=== PATIENT | female | born 1995 | race Caucasian/White ===

== ENCOUNTER 2021-10-09 13:00 | Outpatient (CLI) | payer OTHER, SELFPAY ==
[2021-10-09] VITALS (17 sets, daily range): BP systolic 101–113; BP diastolic 57–72; PULSE 79–110; RESP 16; O2SAT 99–100; BMI 25.4
[2021-10-09 13:47] LABS: Glucose Point of Care 64 mg/dL (70-110)
[2021-10-09 14:38] LABS: Add Urine Microscopic? NO; Charge for UA Resulting for Rev
[2021-10-09 14:40] LABS: Basophils % 0.2 %; Eosinophils # 0.1 10^3/uL (0.0-0.8); Eosinophils % 0.5 %; Hematocrit 38.5 % (37.0-47.0); Hemoglobin 12.7 g/dL (11.5-15.3); Lymphocytes # 1.4 10^3/uL (0.8-4.8); Lymphocytes % 14.1 %; Mean Corpuscular Hemoglobin 28.5 pg (28.0-34.0); Mean Corpuscular Volume 86.3 fl (81-99); Mean Platelet Volume 13.1 fL (7.4-10.4); Monocytes # 0.5 10^3/uL (0.2-0.9); Monocytes % 4.9 %; Neutrophils # 7.72 10^3/uL (1.8-7.7); Neutrophils % 79.7 %; Nucleated Red Blood Cells % 0 %; Platelet Count 226 10^3/cmm (130-400); Red Blood Count 4.46 10^6/uL (4.1-5.3); Red Cell Distribution Width 12.8 % (12.1-15.1); White Blood Count 9.7 10^3/uL (4.0-10.0)
[2021-10-09 14:57] LABS: Alanine Aminotransferase 13 U/L (0-33); Albumin Level 3.6 g/dL (3.5-5.2); Alkaline Phosphatase 115 IU/L (35-105); Anion Gap 14.2 (5-19); Aspartate Amino Transferase 20 U/L (0-32); Blood Urea Nitrogen 9 mg/dL (6-20); Calcium 8.6 mg/dL (8.5-10.5); Carbon Dioxide 22 mmol/L (22-29); Chloride 102 mmol/L (98-107); Globulin 3.7 g/dL (1.3-4.6); Glomerular Filtration Rate 151.6 mL/min (90-130); Glucose 76 mg/dL (65-115); Osmolality Calculated 275 mOsm/kg (285-295); Potassium 4.2 mmol/L (3.5-5.1); Sodium 134 mmol/L (136-145); Total Bilirubin 0.2 mg/dL (0.15-1.2); Total Protein 7.3 g/dL (6.6-8.7); Uric Acid 3.9 mg/dL (2.4-5.7)
[2021-10-09 15:03] LABS: Bilirubin Urine Neg (Negative); Blood Urine Neg (Negative); Glucose Urine UA Norm (Normal); Ketones Urine Negative (Negative); Leukocyte Esterase Urine Negative (Negative); Nitrate Urine Negative (Negative); Protein Urine Neg (Negative); Specific Gravity, Urine 1.005 (1.005-1.030); Urine Appearance Clear (CLEAR); Urine Color Colorless (Yellow); Urobilinogen Urine Norm (Negative); pH Urine 7 (5-7)
[2021-10-09 15:13] LABS: Slide Review Slide Review Perform
[2021-10-09 15:18] LABS: UPRO/UCREAT Ratio 0.24 mg/mg CR; Urine Creatinine 21 mg/dL (28-217); Urine Protein Random 5 mg/dL
== END 2021-10-09 15:49 | disposition home or self-care (01) ==
LOC: OPOB 13:18 → OBGYN 13:19
PROVIDERS: Visit Provider Family Medicine
DX: O16.9 Unspecified maternal hypertension, unspecified trimester (principal); Z3A.00 Weeks of gestation of pregnancy not specified
CPT/HCPCS: 36415; 36416; 80053; 81003; 82570; 82962; 84156; 84550; 85025; G0379

== ENCOUNTER 2021-12-05 04:24 | Inpatient (IN) | payer OTHER, SELFPAY ==
[2021-12-05] VITALS (58 sets, daily range): BP systolic 95–143; BP diastolic 50–89; PULSE 48–92; RESP 15–18; TEMP 35.5–36.9; O2SAT 90–100; BMI 26.8
[2021-12-05 04:34] LABS: Basophils % 0.3 %; Eosinophils # 0.1 10^3/uL (0.0-0.8); Eosinophils % 0.7 %; Hematocrit 38.9 % (37.0-47.0); Hemoglobin 12.4 g/dL (11.5-15.3); Lymphocytes # 2.1 10^3/uL (0.8-4.8); Lymphocytes % 21.2 %; Mean Corpuscular HGB Conc 31.9 g/dL (30.0-36.0); Mean Corpuscular Hemoglobin 27.9 pg (28.0-34.0); Mean Corpuscular Volume 87.4 fl (81-99); Mean Platelet Volume 13.7 fL (7.4-10.4); Monocytes # 0.5 10^3/uL (0.2-0.9); Monocytes % 5.5 %; Neutrophils # 7.12 10^3/uL (1.8-7.7); Neutrophils % 71.9 %; Nucleated Red Blood Cells % 0 %; Platelet Count 185 10^3/cmm (130-400); Positive M 1; Red Blood Count 4.45 10^6/uL (4.1-5.3); Red Cell Distribution Width 13.5 % (12.1-15.1); White Blood Count 9.9 10^3/uL (4.0-10.0)
[2021-12-05] MEDS: lactated ringers 1,000 ML 999 ML IV (04:38)
[2021-12-05 06:02] LABS: Slide Review Slide Review Perform
--- NOTE | 2021-12-05 07:09 | ANES.PREANE2 ---
Pre-Anesthetic Assessment Height/Weight: Height 1.78 m Weight 84.822 kg Temp Pulse Resp BP O2 Del Method 95.9 F L 52 L 16 107/60 12/05/21 03:33 12/05/21 07:05 12/05/21 03:34 12/05/21 07:05 12/05/21 05:45 Preop Diagnosis: Planning of labor analgesia Labor epidural Familial anesthetic complications: None Was Beta Baljinder taken within 24 hours: N/A Was Clonidine taken within 24 hours: N/A Last intake: Full stomach Social No alcohol and No tobacco Exam alert, oriented x 3, clear to auscultation bilaterally and regular rate & rhythm Airway Submandibular: within normal limits Cervical ROM: within normal limits Mallampati: Class II Dentition: full History/ROS No significant history except as noted and No significant complaints Pulmonary None reported CV/HEM None reported None reported Hepatic None reported GI None reported Metabolic None reported Musc/skel None reported Neuropsych None reported Anesthetic Plan ASA status: 2 Anesthesia: Anesthesia Evaluation, Eval. for regional block, General and Regional (specify below) (Labor epidural) Other: I discussed with patient the risk and benefits of labor epidural including PDPH, hypotension, back pain/discomfort/bruising, catastrophic nerve injury including paralysis, abscess, hematoma, failed block, one sided block, and LAST. Patient consents to labor epidural and in case of emergency consents to general anesthesia. Risk of > 500 ml blood loss (7ml/kg in children): No Medications/Allergies Home Medications Medication Instructions Recorded Confirmed Last Taken Type calcium carbonate 200 mg calcium 200 mg PO PRN PRN Acid Reflux 10/09/21 10/09/21 10/08/21 History (500 mg) chewable tablet (Tums) vit no.133-ferrous 1 tab PO DAILY 10/09/21 10/09/21 10/08/21 History fumarate 28 mg-folic acid 800 mcg tablet () Allergies Allergy/AdvReac Type Severity Reaction Status Date / Time Penicillins Allergy ALGY-Rash Verified 10/09/21 14:53 Current Medications Generic Name Dose Route Start Last Admin Trade Name Freq PRN Reason Stop Dose Admin Lactated Ringer's 1,000 mls @ 999 mls/hr 12/05/21 04:23 12/05/21 04:38 Lactated Ringers IV 999 mls/hr .Q1H1M PRN Administration Per L&D Rescitation Protocol [facility] Anesthesia Female Reproductive History : 1 Data Anesthesia : 12/05/21 04:13 Short CBC 12/05/21 Range/Units 04:13 WBC 9.9 (4.0-10.0) 10^3/uL Hgb 12.4 (11.5-15.3) g/dL Hct 38.9 (37.0-47.0) % MCV 87.4 (81-99) fl Plt Count 185 (130-400) 10^3/cmm Neut % (Auto) 71.9 % Neut # (Auto) 7.12 (1.8-7.7) 10^3/uL Cardiac Studies: No Data to Display
--- NOTE | 2021-12-05 07:58 | ANES.PROC ---
Anesthesia Procedures Procedure/Date: 12/05/21 Epidural: Time Out Performed: Yes Consents Signed: Procedure Consent Consent: from patient Lumbar Level: L4-L5 Epidural position: sitting Epidural procedure: sterile prep of area, 1% lidocaine to numb the area, 18 g needle, neg for paresthesia, test dose given, 1.5% xylocaine 1:200k epi, 0.2% Ropivacaine bolus ml, placed PCEA, no systemic response, sterile dressing applied and 0.2% Ropiavacaine @ mls/hr (13) Additional Comments: Cap, mask donned by staff in room. Patient sat up. Patient prepped and draped in usual sterile fashion with Chlorprep. 1% lidocaine skin wheel. Tuohy inserted with stylet. Ligament engaged. Using KEVIN w/ saline technique toward epidural space. Soft ligament, CSF returned. Tuohy removed, moved 1 space up using same skin puncture as original. Using KEVIN w/ air technique epidural space found, catheter threaded. Negative aspiration. Test dose 1.5% lidocaine with epinephrine 1:200,000 total 3 cc. No response. Sterile dressing. Infusion started. Loss at? 6? , catheter at 11 . Tolerated well, good block.?
[2021-12-05] MEDS: ibuprofen 800 mg tablet PO ×2 (13:28→21:18)
[2021-12-05] MEDS: benzocaine-menthol 78 gm Canister 1 SPRAY TOPICAL (13:28)
[2021-12-05] MEDS: lanolin oint 7 gm 1 APPLIC TOPICAL (13:28)
[2021-12-05] MEDS: HYDROcodone-acetaminophen 5-325 mg Tablet PO (16:34)
[2021-12-06] VITALS (10 sets, daily range): BP systolic 103–130; BP diastolic 56–77; PULSE 58–72; RESP 16–18; TEMP 36.6–37; O2SAT 97
[2021-12-06] MEDS: HYDROcodone-acetaminophen 5-325 mg Tablet PO ×3 (00:26→16:33)
[2021-12-06 00:42] LABS: Hematocrit 35.9 % (37.0-47.0); Hemoglobin 11.3 g/dL (11.5-15.3); Mean Corpuscular HGB Conc 31.5 g/dL (30.0-36.0); Mean Corpuscular Hemoglobin 27.8 pg (28.0-34.0); Mean Corpuscular Volume 88.4 fl (81-99); Platelet Count 160 10^3/cmm (130-400); Red Blood Count 4.06 10^6/uL (4.1-5.3); Red Cell Distribution Width 13.5 % (12.1-15.1); White Blood Count 12.6 10^3/uL (4.0-10.0)
[2021-12-06] MEDS: ibuprofen 800 mg tablet PO ×2 (08:22→16:26)
[2021-12-06] MEDS: prenatal vitamin Capsule 1 CAP PO (08:22)
[2021-12-06] MEDS: docusate sodium 100 mg Capsule PO ×2 (08:22→16:26)
--- NOTE | 2021-12-06 09:00 | PC.NURSE ---
pt sitting in allen cross fashion, [facility]
--- NOTE | 2021-12-06 09:05 | PC.NURSE ---
RN and Anesthesia provider at bedside, pt in allen cross sitting position in an epidural position. this nurse performed a timeout this nurse in a sterile fashion prepped the pt right hand to draw blood sterile for the blood patch, the right hand was prepped with betadine and then blood was drawn in sterile fashion by this RN, Carolina RN used sterile technique handed this RN a total of 3, 10mL syringe. Blood was then passed sterile to .
--- NOTE | 2021-12-06 09:35 | ANE.PACU2 ---
Inpatient post-anesthesia follow up: Airway intact: Yes Vital signs: Temperature 98.2 F Pulse Rate 62 Respiratory Rate 16 Blood Pressure 121/70 Pulse Oximetry 97 Oxygen Delivery Me thod Room Air Oxygen Flow Rate Fraction of Inspir ed Oxygen Hydration adequate: Yes Nausea and vomiting: No Pain level: 6 Mental status: Baseline Additional Comments: Patient reports having a headache that started almost immediately after epidural catheter was removed after delivery. Patient reports 6/10 pain, throbbing in b/l anterior head that seems to originate from base of occiput. She endorses neck stiffness. Denies photophobia, hypoacusia, nausea. Worse when sitting and standing, better with lying down and medications. We discussed options for treatment including wait and see approach with NSAIDs, caffeine, and hydration, as well as epidural blood patch. We usual course of post dural puncture headache and rate of success of epidural blood patch. We discussed risk and benefits of an epidural blood patch including infection, paralysis/catastrophic nerve injury, back bruising/pain, repeat CSF puncture. Patient elected to proceed with epidural blood patch and signed consent.
--- NOTE | 2021-12-06 09:41 | P.ANES_ITS ---
Anesthesia Procedures Procedure/Date: 12/06/21 Epidural: Time Out Performed: Yes Consents Signed: Procedure Consent Consent: from patient, risks and benefits reviewed and patient agrees to proceed Lumbar Level: L4-L5 Epidural position: sitting Epidural procedure: sterile prep of area, 1% lidocaine to numb the area, 18 g needle and sterile janey ssing applied Additional Comments: Cap, mask donned. Patient sat up. Patient prepped and draped in usual sterile fashion with Chlorprep. 1% lidocaine skin wheel. Tuohy inserted with stylet at site of original skin puncture of prior epidural catheter. Ligament engaged. Using KEVIN w/ air technique epidural space carefully found, very soft ligament, with very slight change in loss of resitance. PIV obtained in sterile fashion by RN and blood drawn in sterile fashion in increments of 10 ml to ensure no clotting. Without breaking sterile field total of 22 ml of blood was injected very slowly until patient appreciated pressure sensation in back. Patient had immediate relief of headache. Touhy removed. Pressure held. Sterile dressing applied.
--- NOTE | 2021-12-06 13:58 | ANE.PACU2 ---
Inpatient post-anesthesia follow up: Airway intact: Yes Vital signs: Temperature 98.2 F Pulse Rate 62 Respiratory Rate 16 Blood Pressure 121/70 Pulse Oximetry 97 Oxygen Delivery Me thod Room Air Oxygen Flow Rate Fraction of Inspir ed Oxygen Additional Comments: Patient evaluated in her room. Standing up at table, filling out paperwork. Smiling. I asked if her headache was better oh yes, much better was her reply. Has no back/leg pain. Happy that headache. I let her know I am sorry that happened to you to which she replied oh, it [okay] while shrugging her shoulder and gesturing with her hand as though wiping something away with a single stroke. I thanked them and congratulated the family and her awesome.
--- NOTE | 2021-12-06 14:37 | PM.OPHPUD ---
Labor & Delivery H&P Update Date of Procedure: December 06, 2021 Date H&P Performed: 12/04/21 Changes to previous documentation: None Admission Diagnosis: 26-year-old 1 female at 40 weeks estimated gestational age presenting in active labor. Preop diagnosis: Planning of labor analgesia Planned procedure: Spontaneous vaginal delivery Other information: Patient presented to the hospital with consistent contractions less than every 5 minutes and no cervical change noted. Epidural was placed. An amniotomy was performed. She progressed to complete without difficulty. The patient's was unremarkable. She received care during the first [address] [facility] type [facility] O+. Her antibody screen was negative. Her infectious disease profile was within normal limits. Her glucose screen was normal. She is rubella immune. She was GBS negative.
--- NOTE | 2021-12-06 14:41 | PM.DELIVERY ---
Delivery Note: Date of delivery: December 06, 2021 Pre-delivery diagnoses: 26-year-old 1 at 40 weeks estimated gestational age Post-delivery diagnoses: Status post spontaneous vaginal delivery Procedure: Spontaneous vaginal delivery Delivering Physician: Shelton Overton Estimated blood loss (mL): 150 Delivery: DELIVERY: The patient progressed to complete without difficulty. She delivered a female with a weight of 8 pounds 7 ounces with Apgars of 8, 9. The baby was delivered from the SUSANA position and placed on the mother's abdomen. The cord was then clamped and cut. There was no nuchal cord. There was no meconium. The placenta and 3 vessel cord were delivered intact shortly thereafter. The perineum and vaginal vault were carefully examined. Patient was noted to have a second-degree posterior midline tear. It was repaired with 3-0 Vicryl in the usual fashion.. Both the mother and the baby were in stable condition. Post-Delivery Status: Good A&P Assessment and plan (1) 40 weeks gestation of : Status: Acute (2) Spontaneous vaginal delivery: Anticipate routine care. Status: Acute Coding Level of Care Code Acute General Magistrate for Chg Fwd Diagnoses 40 weeks gestation of Z3A.40 Spontaneous vaginal delivery O80
--- NOTE | 2021-12-06 14:44 | P.DS_ITS ---
Discharge Providers X RAY PHYSICIAN Date of Admission: 12/05/21 04:24 Date of Discharge: 12/06/21 Attending Provider at Admission: Shelton Overton MD Attending Provider at Discharge: Shelton Overton MD Diagnoses at Discharge Discharge Diagnosis (1) 40 weeks gestation of : Status: Acute (2) Spontaneous vaginal delivery: Status: Acute Reason for Visit Reason for Visit: CONTRACTIONS Hospital Course Hospital Course The patient presented to the hospital in active labor. An epidural was placed. She progressed to complete and had an unremarkable delivery of a healthy- appearing female infant. Her course was remarkable for having a spinal headache. A blood patch was performed and was effective. Additional headache resolved completely. Physical Exam Narrative: The patient is alert. She appears comfortable. Her heart has a regular rate and rhythm with no murmurs appreciated. Lungs are clear to auscultation bilaterally. Her fundus is firm and below the umbilicus. Urinary Catheter Management: Stovall: Cath Placed During This Visit: yes Urinary Catheter Date of Insertion: 12/05/21 Urinary Catheter Time of Insertion: 08:10 Discharge Data Studies Completed and Pending Laboratory Results WBC 12.6 10^3/uL (4.0-10.0) H 12/06/21 00:20 RBC 4.06 10^6/uL (4.1-5.3) L 12/06/21 00:20 Hgb 11.3 g/dL (11.5-15.3) L 12/06/21 00:20 Hct 35.9 % (37.0-47.0) L 12/06/21 00:20 MCV 88.4 fl (81-99) 12/06/21 00:20 MCH 27.8 pg (28.0-34.0) L 12/06/21 00:20 MCHC 31.5 g/dL (30.0-36.0) 12/06/21 00:20 RDW 13.5 % (12.1-15.1) 12/06/21 00:20 Plt Count 160 10^3/cmm (130-400) 12/06/21 00:20 MPV 14.0 fL (7.4-10.4) H 12/06/21 00:20 Neut % (Auto) 71.9 % 12/05/21 04:13 Lymph % (Auto) 21.2 % 12/05/21 04:13 [place] % (Auto) 5.5 % 12/05/21 04:13 Eos % (Auto) 0.7 % 12/05/21 04:13 Baso % (Auto) 0.3 % 12/05/21 04:13 Neut # (Auto) 7.12 10^3/uL (1.8-7.7) 12/05/21 04:13 Lymph # (Auto) 2.1 10^3/uL (0.8-4.8) 12/05/21 04:13 [place] # (Auto) 0.5 10^3/uL (0.2-0.9) 12/05/21 04:13 Eos # (Auto) 0.1 10^3/uL (0.0-0.8) 12/05/21 04:13 Baso # (Auto) 0.0 10^3/uL (0.0-0.1) 12/05/21 04:13 Nucleated RBC % (auto) 0 % 12/05/21 04:13 Nucleated RBCs # 0.0 /100WBC 12/05/21 04:13 Vitals Last Vital Signs Temp 98.2 F 12/06/21 05:56 Pulse 62 12/06/21 02:00 Resp 16 12/06/21 05:56 BP 121/70 12/06/21 05:56 Pulse Ox 97 12/06/21 02:00 O2 Del Method 12/06/21 05:56 Discharge Plan Discharge Patient Disposition: Home Condition: Stable Prescriptions: New ibuprofen 800 mg Tablet 800 mg PO TID Qty: 45 0RF Continued 28-800 mg-mcg Tablet 1 tab PO DAILY Discontinued calcium carbonate [Tums] 200 mg calcium (500 mg) Tablet,Chewable 200 mg PO PRN PRN (Reason: Acid Reflux) Discharge Orders: Discharge Order (Routine); Ordered 12/06/21 Ordered By: Shelton Overton Referrals: Shelton Overton MD [Physician] - 6 Weeks Discharge Diet: Usual diet Discharge Activity: Limit activity as instructed Patient Instructions: Opioid Safety Discharge Attestations X RAY PHYSICIAN Time Spent in Discharge Care*: less than 30 min Coding Level of Care Code Acute Ibm Bpm Developer for Chg Fwd Diagnoses 40 weeks gestation of Z3A.40 Spontaneous vaginal delivery O80
== END 2021-12-06 17:45 | disposition home or self-care (01) | DRG 807 ==
LOC: OPOB 04:24 → OBGYN 04:24
PROVIDERS: Admitting Provider Family Medicine; Visit Provider Family Medicine
DX: O70.1 Second degree perineal laceration during delivery (principal); Z37.0 Single live birth; O89.4 Spinal and epidural anesthesia-induced headache during the puerperium; Z3A.40 40 weeks gestation of pregnancy
CPT/HCPCS: 12345; 36415; 51702; 59025; 59409; 85025; 85027; 99211

== ENCOUNTER 2024-01-12 13:53 | Emergency (ER) | payer OTHER, SELFPAY ==
[2024-01-12 13:56] VITALS: BP 117/77; PULSE 76; RESP 20; TEMP 36.7; O2SAT 100
--- NOTE | 2024-01-12 14:00 | XR_ITS ---
WS: [id number] Exam: XR chest 1V portable [id number] Date/Time of Exam: 01/12/2024 2:00 PM Reason For Exam: cough No priors. Lungs are fully expanded and clear. Normal cardiomediastinal silhouette. Regional bony elements are i ntact. No pleural effusion. XR/XR chest 1V portable [id number] IMPRESSION: 1. Normal chest.
--- NOTE | 2024-01-12 15:09 | ED_ITS ---
HPI - SOB/Dyspnea 2 General: Chief Complaint: Shortness of Breath/Dyspnea Stated Complaint: has pnuemonia - SOB, pain Time Seen by Provider: 01/12/24 14:55 Source: patient Mode of arrival: ambulatory Limitations: no limitations History of Present Illness: HPI Narrative: 28-year-old female states she has had co ugh congestion since . She states she saw her PCP started on azithromycin along with Medrol Dosepak for possible pneumonia states that today she has been having some sharp pains in her chest especially with inspiration with her cough. She is afebrile here pulse ox arms on room air. Associated symptoms: Reports chest pain; Deny abdominal pain, fever(s), nausea or vomiting Related Data Home Medications Medication Instructions Recorded Confirmed vit no.133-ferrous 1 tab PO DAILY 10/09/21 10/09/21 fumarate 28 mg-folic acid 800 mcg tablet () Previous Rx's Medication Instructions Recorded ibuprofen 800 mg tablet 800 mg PO TID #45 tabs 12/06/21 naproxen 500 mg tablet (Naprosyn) 500 mg PO BID PRN pain #20 tabs 01/12/24 Allergies Allergy/AdvReac Type Severity Reaction Status Date / Time Penicillins Allergy ALGY-Rash Verified 01/12/24 14:03 Review of Systems 2 Const: Denies: fever(s), chills, body aches or change in appetite ENMT: Denies: throat pain or dental pain Card: Reports: chest pain Resp: Reports: dyspnea and non-productive cough GI: Denies: abdominal pain, nausea, vomiting or diarrhea : Denies: dysuria Musc: Denies: neck pain or back pain Skin/Breast: Denies: rash Neuro: Denies: headache(s) [facility] 2 Female Reproductive History: Date of last menstrual period: 12/15/23 Physical Exam 2 Const: COMMON NORMALS: no acute distress, patient oriented x3 and healthy appearing HENMT: COMMON NORMALS: normocephalic and atraumatic HEAD & SCALP: n ormocephalic and atraumatic Neck/C-Spine: COMMON NORMALS: full ROM and supple Chest: COMMONS NORMALS: normal inspection of the chest Resp: COMMON NORMALS: normal respiratory effort, No retractions, No use of accessory muscles and clear to auscultation bilaterally AUSCULTATION: clear to auscultation bilaterally Cardio: COMMON NORMALS: regular rate, regular rhythm and No murmurs present (Cardio) RATE: regular rate RHYTHM: regular rhythm Extremity: COMMON NORMALS: normal to inspection and full ROM Neuro: COMMON NORMALS: patient oriented x3, moves all extremities and no focal motor deficits Psych: COMMON NORMALS: mental status grossly normal, Normal thought process present and cooperative THOUGHT PROCESS: Normal thought process present Skin: COMMON NORMALS: no rashes or lesions noted and no wounds GENERAL SKIN EXAM: no rashes or lesions noted Course 2 Vital Signs: Vital signs: Vital Signs Temperature 98.1 F 01/12/24 13:56 Pulse Rate 76 01/12/24 13:56 Respiratory Rate 20 H 01/12/24 13:56 Blood Pressure 117/77 01/12/24 13:56 Pulse Oximetry 100 01/12/24 13:56 Oxygen Delivery Me thod Room Air 01/12/24 13:56 MDM - SOB/Dyspnea Medical Decision Making Patient presents here with upper respiratory infection x-ray here was normal D- dimer is negative no signs of PE likely having some pleuritic pain she is continue antibiotics steroids will place her on Naprosyn she is to follow-up with PCP and return if worsening. Medical Records I reviewed the patient's medical records. Lab Data I reviewed the patient's lab results. 01/12/24 15:36 01/12/24 15:36 Labs/Radiology: Radiology Impressions Chest X-Ray 01/12/24 14:00 IMPRESSION: 1. Normal chest. Laboratory Results WBC 11.45 10^3/uL (3.29-11.43) H 01/12/24 15:36 RBC 4.97 10^6/uL (3.85-5.65) 01/12/24 15:36 Hgb 13.90 g/dL (11.27-16.99) 01/12/24 15:36 Hct 43.1 % (36-47) 01/12/24 15:36 MCV 86.7 fl (85-98) 01/12/24 15:36 MCH 28.0 pg (27-33) 01/12/24 15:36 MCHC 32.3 g/dL (30-55) 01/12/24 15:36 RDW 13.0 % (12.1-15.1) 01/12/24 15:36 Plt Count 312 10^3/cmm (157-399) 01/12/24 15:36 MPV 11.6 fL (7.4-10.4) H 01/12/24 15:36 Neut % (Auto) 71.4 % 01/12/24 15:36 Lymph % (Auto) 23.9 % 01/12/24 15:36 Dickson % (Auto) 3.8 % 01/12/24 15:36 Eos % (Auto) 0.3 % 01/12/24 15:36 Baso % (Auto) 0.3 % 01/12/24 15:36 Neut # (Auto) 8.18 10^3/uL (1.8-7.7) H 01/12/24 15:36 Lymph # (Auto) 2.7 10^3/uL (0.8-4.8) 01/12/24 15:36 Dickson # (Auto) 0.4 10^3/uL (0.2-0.9) 01/12/24 15:36 Eos # (Auto) 0.0 10^3/uL (0.0-0.8) 01/12/24 15:36 Baso # (Auto) 0.0 10^3/uL (0.0-0.1) 01/12/24 15:36 Nucleated RBC % (auto) 0 % 01/12/24 15:36 Nucleated RBCs # 0.0 /100WBC 01/12/24 15:36 D-Dimer 0.34 ug/mLFEU (0-0.59) 01/12/24 15:36 Sodium 138 mmol/L (136-145) 01/12/24 15:36 Potassium 3.7 mmol/L (3.5-5.1) 01/12/24 15:36 Chloride 103 mmol/L (98-107) 01/12/24 15:36 Carbon Dioxide 26 mmol/L (22-29) 01/12/24 15:36 Anion Gap 12.7 (5-19) 01/12/24 15:36 BUN 10 mg/dL (6-20) 01/12/24 15:36 Creatinine 0.6 mg/dL (0.5-0.9) 01/12/24 15:36 GFR Calculation 120.8 mL/min (90-130) 01/12/24 15:36 Glucose 92 mg/dL (65-115) 01/12/24 15:36 Calculated Osmolality 285 mOsm/kg (285-295) 01/12/24 15:36 Calcium 8.8 mg/dL (8.5-10.5) 01/12/24 15:36 Total Bilirubin 0.2 mg/dL (0.15-1.2) 01/12/24 15:36 AST 14 U/L (0-32) 01/12/24 15:36 ALT 10 U/L (0-33) 01/12/24 15:36 Alkaline Phosphatase 52 U/L (35-105) 01/12/24 15:36 Total Protein 7.6 g/dL (6.6-8.7) 01/12/24 15:36 Albumin 4.6 g/dL (3.5-5.2) 01/12/24 15:36 Globulin 3.0 g/dL (1.3-4.6) 01/12/24 15:36 HCG, Qual Negative (Negative) 01/12/24 15:36 All radiology interpretation(s) finalized by discharge Discharge Plan Discharge Patient Disposition: Home Clinical Impression: Upper respiratory infection Condition: Stable Prescriptions: New naproxen [Naprosyn] 500 mg tablet 500 mg PO BID PRN (Reason: pain) Qty: 20 0RF No Action 28-800 mg-mcg Tablet 1 tab PO DAILY ibuprofen 800 mg Tablet 800 mg PO TID Qty: 45 0RF Discharge Orders: Discharge ED (Routine); Ordered 01/12/24 Ordered By: Darell Nick Discharge Diet: Advance as tolerated Discharge Activity: Resume usual activity Patient Instructions: Upper Respiratory Infection (ED) Coding Level of Care Code ED Marketing Intern for Lroi Serrano
[2024-01-12 15:57] LABS: Basophils % 0.3 %; Eosinophils % 0.3 %; Hematocrit 43.1 % (36-47); Lymphocytes # 2.7 10^3/uL (0.8-4.8); Lymphocytes % 23.9 %; Mean Corpuscular HGB Conc 32.3 g/dL (30-55); Mean Corpuscular Volume 86.7 fl (85-98); Mean Platelet Volume 11.6 fL (7.4-10.4); Monocytes # 0.4 10^3/uL (0.2-0.9); Monocytes % 3.8 %; Neutrophils # 8.18 10^3/uL (1.8-7.7); Neutrophils % 71.4 %; Nucleated Red Blood Cells % 0 %; Platelet Count 312 10^3/cmm (157-399); Red Blood Count 4.97 10^6/uL (3.85-5.65); White Blood Count 11.45 10^3/uL (3.29-11.43)
[2024-01-12 16:03] VITALS: BP 112/81; PULSE 60; O2SAT 96
[2024-01-12] MEDS: ketorolac 30 mg/mL INJ IVP (16:06)
[2024-01-12 16:10] LABS: HCG, Serum Qual Negative (Negative)
[2024-01-12 16:14] LABS: D Dimer 0.34 ug/mLFEU (0-0.59)
[2024-01-12 16:17] LABS: Alanine Aminotransferase 10 U/L (0-33); Albumin Level 4.6 g/dL (3.5-5.2); Alkaline Phosphatase 52 U/L (35-105); Anion Gap 12.7 (5-19); Aspartate Amino Transferase 14 U/L (0-32); Blood Urea Nitrogen 10 mg/dL (6-20); Calcium 8.8 mg/dL (8.5-10.5); Carbon Dioxide 26 mmol/L (22-29); Chloride 103 mmol/L (98-107); Creatinine Clr Calc Pharmacy 155.2706; Glomerular Filtration Rate 120.8 mL/min (90-130); Glucose 92 mg/dL (65-115); Osmolality Calculated 285 mOsm/kg (285-295); Potassium 3.7 mmol/L (3.5-5.1); Sodium 138 mmol/L (136-145); Total Bilirubin 0.2 mg/dL (0.15-1.2); Total Protein 7.6 g/dL (6.6-8.7)
[2024-01-12 16:52] VITALS: BP 112/81; PULSE 62; O2SAT 91
== END 2024-01-12 16:57 | disposition home or self-care (01) ==
PROVIDERS: Emergency Provider Emergency Medicine
DX: J06.9 Acute upper respiratory infection, unspecified (principal)
CPT/HCPCS: 36415; 71045; 80053; 84703; 85025; 85378; 96374; 99284; J1885

== ENCOUNTER → 2024-02-28 10:23 | Outpatient (BNVA) | payer OTHER, SELFPAY | PROVIDERS: Visit Provider Specialist | DX: M25.551 Pain in right hip (principal); M54.31 Sciatica, right side | CPT/HCPCS: 73502 ==

== ENCOUNTER → 2024-03-16 08:06 | Outpatient (BNVA) | payer OTHER, SELFPAY | PROVIDERS: PCP Nurse Practitioner Family; Visit Provider Orthopaedic Surgery | DX: M54.50 Low back pain, unspecified; M48.062 Spinal stenosis, lumbar region with neurogenic claudication; M54.31 Sciatica, right side | CPT/HCPCS: 72110 ==

== ENCOUNTER 2024-04-06 06:00 | Outpatient (RCR) | payer OTHER, SELFPAY | END 2024-04-11 23:59 | disposition home or self-care (01) | LOC: MPT 06:00 | PROVIDERS: Visit Provider Orthopaedic Surgery | DX: M54.50 Low back pain, unspecified (principal); G89.29 Other chronic pain | CPT/HCPCS: 97110; 97162; G0283 ==

== ENCOUNTER 2024-04-12 06:00 | Outpatient (RCR) | payer OTHER, SELFPAY | END 2024-05-12 23:59 | disposition home or self-care (01) | LOC: MPT 06:00 | PROVIDERS: Visit Provider Orthopaedic Surgery | DX: M54.50 Low back pain, unspecified (principal); G89.29 Other chronic pain | CPT/HCPCS: 97110; G0283 ==

== ENCOUNTER 2024-05-15 15:14 | Outpatient (RCR) | payer OTHER, SELFPAY | END 2024-05-15 15:15 | disposition home or self-care (01) | LOC: MPT 15:14 | PROVIDERS: Visit Provider Orthopaedic Surgery | DX: M54.50 Low back pain, unspecified (principal); G89.29 Other chronic pain | CPT/HCPCS: 97110 ==

== ENCOUNTER 2024-06-02 07:00 | Outpatient (CLI) | payer OTHER, SELFPAY ==
--- NOTE | 2024-06-02 07:15 | MR_ITS ---
WS: [id number] MRI LUMBAR SPINE NONCONTRAST TECHNIQUE: Sagittal T1, T2 and STIR imaging. Axial T1 and T2 imaging. CLINICAL INFORMATION: M48.062 - Spinal stenosis, lumbar region with neurogenic ... COMPARISON: None. FINDINGS: Mild lumbar curve. No acute compression. Disc bulging worse at L4-5. L1-L2: Normal L2-L3: Mild annular bulging with a shallow central protrusion. Tiny RIGHT paracentral annular fissure. Slight impingement on the traversing L3 nerve roots. Mild central canal stenosis. Mild facet arthropathy. Foramen are patent. L3-L4: Mild annular bulging with a shallow central protrusion. Slight impingement of the subarticular recess bilaterally. Mild facet arthropathy. Mild RIGHT foraminal narrowing. L4-L5: LEFT paracentral disc extrusion with slight caudal migration of disc material with impingement LEFT subarticular recess and traversing LEFT L5 nerve root. Mild central canal stenosis. Mild LEFT foraminal narrowing. Mild facet arthropathy. L5-S1: Mild annular bulging. Slight impingement traversing LEFT S1 nerve root. Small annular fissure. Mild LEFT foraminal narrowing with slight contact of the far exiting LEFT L5 nerve root. Visualized pelvic bony structures: Normal. Paravertebral soft tissues: Normal. Retroverted and retroflexed uterus. MR/MR lumbar spine wo con* [id number] IMPRESSION: 1. Mild lumbar curve. No acute compression. 2. LEFT subarticular disc extrusion L4-5 with slight caudal extension of disc material. Impingement of the LEFT subarticular recess and traversing LEFT L5 ne rve root with mild central canal stenosis. 3. Shallow central protrusion L2-3 with mild central canal stenosis and slight impingement on traversing L3 nerve roots. 4. Shallow central protrusion L3-4 with narrowing of the subarticular recess. 5. Disc bulge L5-S1 impinges the traversing LEFT S1 nerve root with mild LEFT foraminal narrowing. 6. Small annular fissures at RIGHT L2-3 and LEFT L5-S1.
== END 2024-06-02 07:01 | disposition home or self-care (01) ==
LOC: RAD 07:02
PROVIDERS: Visit Provider Orthopaedic Surgery
DX: M48.062 Spinal stenosis, lumbar region with neurogenic claudication (principal); M79.604 Pain in right leg; M79.605 Pain in left leg; M43.8X6 Other specified deforming dorsopathies, lumbar region; M51.26 Other intervertebral disc displacement, lumbar region; R93.7 Abnormal findings on diagnostic imaging of other parts of musculoskeletal system; M51.379 Other intervertebral disc degeneration, lumbosacral region without mention of lumbar back pain or lower extremity pain; M48.07 Spinal stenosis, lumbosacral region; M47.896 Other spondylosis, lumbar region; N85.4 Malposition of uterus
CPT/HCPCS: 72148